=== PATIENT | male | born 1940 | race Caucasian/White ===

== ENCOUNTER 2018-03-18 17:32 | Emergency (ER) | payer OTHER, BC ==
--- NOTE | 2018-03-18 17:50 | EDPHY ---
HPI/HX/ROS/PE/MDM Narrative: CHIEF COMPLAINT: Back and right-sided abdominal pain HISTORY OF PRESENT ILLNESS: The patient is an anticoagulated (Coumadin) 78 y/o male with a history of a DVT , PE, factor V Leiden factor, chronic low back pain, hypertension, and cholecystectomy complaining of waxing and waning radiating back and constant mild right-sided abdominal pain. On morning, 2 days ago, he got out of bed and his back was stiff with pain; these symptoms have occurred before. The back pain intensified which has occurred in the past, but it usually alleviates in 1-2 days which did not happen this time. Due to this pain he saw his physical therapist 2 days ago. Shortly after PT, the back pain increased. Moving into certain positions aggravates the back pain. When twisting into a position to alleviate the pain today, he noticed mild right abdominal point tenderness associated with nausea. Currently the right-sided back pain is radiating into his hip and the front of his right leg. Due to the back pain, he has mild right leg weakness. He took Tramadol for the pain with very mild relief of his symptoms. His INR is typically between 2-3. No fever, chills, chest pain, shortness of breath, palpitations, vomiting, diarrhea, urinary complaints, headache, lightheadedness. REVIEW OF SYSTEMS: Aside from elements discussed in the HPI, a comprehensive 10-point review of systems was reviewed and is negative. PAST MEDICAL HISTORY: DVT, PE, chronic low back pain, hypertension, cholecystectomy, factor V Leiden factor SOCIAL HISTORY: Family at bedside, , retired, originally from [place] VITAL SIGNS: Reviewed by me GENERAL: Elderly gentleman. Well-developed, well-nourished, resting comfortably in no respiratory distress. HEENT: Atraumatic. Eyes: No icterus, no injection. Mouth: moist mucous membranes. No erythema or lesions. Neck: supple with no adenopathy. LUNGS: Clear to auscultation bilaterally, no wheezes, rhonchi or rales. CARDIAC: Regular rate and rhythm, no rubs, murmurs or gallops. ABDOMEN: Right upper and mid quadrant tenderness to palpation. Soft, nondistended, bowel sounds normal. NO guarding or rebound. BACK: Right paraspinous lumbar tenderness. No CVA tenderness. EXTREMITIES: No trauma. No edema. Range of motion is normal throughout. NEURO: Alert and oriented, grossly nonfocal. SKIN: Warm and dry, no rash. PSYCHIATRIC: Normal mentation, no agitation. Portions of this note were transcribed by a medical billing clerk. I personally performed a history, physical exam, medical decision making, and confirmed accuracy of information the transcribed note. ED Course: The patient is an anticoagulated (Coumadin) 78 y/o male with a history of a DVT , PE, factor V Leiden factor, chronic low back pain, hypertension, and cholecystectomy presenting with waxing and waning, radiating back and right- sided abdominal pain. Right upper and mid quadrant tenderness to palpation as well as right paraspinous lumbar tenderness. Labs and abdominopelvic CT ordered ; 1mg IV Dilaudid, 1L IV NS, and lidocaine patch administered. Labs largely noncontributary. 1953: Spoke with radiologist, the patient is constipated. CT scan without specific findings requiring additional interventions or hospitalization. Patient is visiting from [place]. Here iwht his family. Appears he is not taking meds to treat the pain. 2030: Reassessed patient and discussed laboratory and imaging findings. He now reports that he has not taken Tramadol for pain. I have advised him to take Tramadol, Medrol dose pack, oxycodone, and a lidocaine patch for his pain as well as magnesium citrate for his constipation. 8mg PO Decadron and 50mg PO tramadol given prior to discharge. Return precautions provided; patient is comfortable with this plan. MDM: Diff dx considered included constipation, bowel obstruction, kidney stone, UTI, pyelonephritis, chronic low back pain, cholecystitis. - Data Points Imaging Results: Impression: 1. No CT findings for appendicitis. No evidence for ureteral calculus or hydronephrosis. 2. Diverticulosis sigmoid colon. No evidence for diverticulitis. Moderate constipation, right-sided. 3. Status post cholecystectomy. 4. Other chronic findings, as above. Results called and discussed with Leanne Joseph MD on March 18, 2018 at 1956 hours. Dictated By: Bernardo Mora MD Imaging: Discussed imaging studies w/ maintenance trainer Radiologist, I viewed and interpreted images myself Laboratory Results: Laboratory Results 03/18/18 18:15 03/18/18 18:15 Medications Given: Discontinued Medications Dexamethasone (Decadron) 8 mg PO EDNOW ONE Stop: 03/18/18 20:48 Last Admin: 03/18/18 21:05 Dose: 8 mg Hydromorphone HCl (Dilaudid) 1 mg IVP EDNOW ONE Stop: 03/18/18 18:21 Last Admin: 03/18/18 18:40 Dose: 1 mg Sodium Chloride (Ns) 1,000 mls @ 0 mls/hr IV ONCE ONE; Wide Open PRN Reason: Protocol Stop: 03/18/18 19:13 Last Admin: 03/18/18 19:21 Dose: 1,000 mls Miscellaneous Information (Patch Removal) 1 ea TD DAILY21 RYLEE Stop: 09/14/18 20:59 Last Admin: 03/18/18 21:06 Dose: 1 ea Miscellaneous Medication (Icy Hot Lidocaine/Menthol 4%/1% Patch) 1 patch TD EDNOW ONE Stop: 03/18/18 18:20 Last Admin: 03/18/18 18:40 Dose: 1 patch Oxycodone/Acetaminophen (Percocet 5/325mg Prepack#4) 1 btl TAKEHOME EDNOW ONE Stop: 03/18/18 20:49 Last Admin: 03/18/18 21:04 Dose: 1 btl Tramadol HCl (Ultram) 50 mg PO EDNOW ONE Stop: 03/18/18 20:48 Last Admin: 03/18/18 21:05 Dose: 50 mg Point of Care Test Results: Chemistry 03/18/18 18:19 POC Troponin I 0.00 ng/mL ng/mL (0.00-0.08) General Time Seen by Provider: 03/18/18 17:48 Initial Vital Signs: Initial Vital Signs Temperature (C) 37.2 C 03/18/18 17:37 Heart Rate 76 03/18/18 17:37 Respiratory Rate 18 03/18/18 17:37 Blood Pressure 146/86 H 03/18/18 17:37 O2 Sat (%) 97 03/18/18 17:37 O2 Delivery Mode Room Air Allergies/Adverse Reactions: No Known Allergies Allergy (Unverified 03/18/18 17:40) Home Medications: Medication Instructions Recorded Bystolic 03/18/18 Coumadin 03/18/18 Losartan Potassium 03/18/18 NIFEdipine 03/18/18 Zetia 03/18/18 methylPREDNISolone [Medrol Dose 4 mg PO DAILY #1 each 03/18/18 Arun] traMADol [Ultram 50 mg (*)] 50 mg PO Q6 #30 tab 03/18/18 Departure - Departure Disposition: Home, Routine, Self-Care Clinical Impression: Constipated Qualifiers: Constipation type: other constipation type Qualified Code(s): K59.09 - Other constipation Low back pain Qualifiers: Chronicity: chronic Back pain laterality: right Sciatica presence: without sciatica Qualified Code(s): M54.5 - Low back pain; G89.29 - Other chronic pain; G89.29 - Other chronic pain Condition: Good Instructions: Oxycodone/Acetaminophen (By mouth), Constipation (ED), High Fiber Diet (ED), Chronic Back Pain (ED) Additional Instructions: Take Tramadol as directed for pain. Take the Medrol-dose pac as prescribed. Take Oxycodone as directed for severe pain. Use a lidocaine patch as directed. These are available [id number] Take Magnesium citrate as directed for pain. Return to the emergency department for severe pain, fever, numbness, difficulty walking, change in location or nature of pain or other concerns. Referrals: JESSI TOUSSAINT [Other] - As per Instructions Prescriptions: methylPREDNISolone [Medrol Dose Arun] 4 mg PO DAILY #1 each traMADol [Ultram 50 mg (*)] 50 mg PO Q6 #30 tab Report Scribed for: Leanne Joseph Report Scribed by: Tianna Snider Date of Report: 03/18/18 Time of Report: 17:50
[2018-03-18] MEDS ORDERED: LIDOCAINE 4%/MENTHOL 1% PATCH TD ONE (18:19)
[2018-03-18] MEDS ORDERED: HYDROmorphONE/DILAUDID 2 MG/ML INJ IVP ONE (18:20)
[2018-03-18 18:25] LABS: PLATELET COUNT 224 10^3/uL (150-400)
[2018-03-18] MEDS ORDERED: HYDROmorphONE/DILAUDID 1 MG/ML INJ ONE (18:26)
[2018-03-18 18:34] LABS: INR 2.54 (0.83-1.16); PROTIME(PATIENT) 27.3 SEC (12.0-15.0)
[2018-03-18] MEDS ORDERED: NS 1,000 ML IV ONE (19:12)
[2018-03-18] MEDS ORDERED: IOPAMIDOL (ISOVUE-300) 100 ML BTL ONE (19:14)
[2018-03-18] MEDS ORDERED: DEXAMETHASONE 4 MG TAB PO ONE (20:47)
[2018-03-18] MEDS ORDERED: traMADol 50 MG TAB PO ONE (20:47)
[2018-03-18] MEDS ORDERED: OXYCODONE/APAP 5/325MG PREPACK#4 BTL TAKEHOME ONE (20:48)
[2018-03-18] MEDS ORDERED: PATCH REMOVAL 1 EA PATCH TD SCH (21:00)
[2018-03-18] MEDS ORDERED: MAGNESIUM CITRATE 300 ML BOTTLE ONE (21:13)
[2018-03-18 21:26] VITALS: BP 141/79
== END 2018-03-18 21:26 | disposition home or self-care (01) ==
DX: K59.09 Other constipation (principal); G89.29 Other chronic pain; M54.5 Low back pain; E86.9 Volume depletion, unspecified; I10 Essential (primary) hypertension; Z79.01 Long term (current) use of anticoagulants; Z90.49 Acquired absence of other specified parts of digestive tract
CPT/HCPCS: 74177; 96361; 96374; 99285; J1170; Q9967; 84484-PO